=== PATIENT | female | born 1980 | race Caucasian/White ===

== ENCOUNTER 2023-01-01 10:32 | Emergency (ER) | payer MEDICARE, MEDICAID ==
--- NOTE | 2023-01-01 10:51 | ED General ---
General Chief Complaint: Skin/Wound Problems Stated Complaint: RT ELBOW SWELLING/HEAT Nursing Triage Note: RIGHT ELBOW AND ARM SWELLING, REDNESS, AND PAIN. Source of Information: Patient Exam Limitations: No Limitations History of Present Illness Date Seen by Provider: January 01, 2023 Time Seen by Provider: 10:34 Initial Comments 42-year-old female with past medical history of psoriatic arthritis coming in due to right elbow pain. The pain started Sunday, she thought potentially she could have been bitten by bug, but did not see any bites. It is an area that she has psoriatic lesions. Became more red, warm, and more painful as the days went on. She has not taken anything for it as of yet. She states that similar to previous episode where she had an infection in the area. Denies any prior history of gout, pseudogout, vaginal discharge, abdominal pain, fever, chills, or any other concerns. She is able to bend the elbow. Allergies and Home Medications Allergies Coded Allergies: penicillin G (Verified Allergy, Unknown, Rash, 01/01/23) Patient Home Medication List Home Medication List Reviewed: Yes Review of Systems Review of Systems Constitutional: No fever EENTM: no symptoms reported Respiratory: no symptoms reported Cardiovascular: no symptoms reported Gastrointestinal: no symptoms reported Genitourinary: no symptoms reported Musculoskeletal: see HPI Skin: see HPI Psychiatric/Neurological: No Symptoms Reported Past Efcwqyy-Luvsvr-Dgardm Hx Patient Social History Tobacco Use?: No Use of E-Cig and/or Vaping dev: Yes Use of E-Cig and/or Vaping Oneal: Current Everyday User Alcohol Use?: Yes Alcohol Frequency: Couple times a week Pt feels they are or have been: No Past Medical History Surgery/Hospitalization HX: gall bladder gastric bypass Physical Exam Vital Signs Vital Signs - First Documented 01/01/23 10:44 Temp 36.3 Pulse 118 Resp 18 B/P (MAP) 164/98 (120) Pulse Ox 96 O2 Delivery Room Air Capillary Refill : Less Than 3 Seconds Height, Weight, BMI Height: '" Weight: lbs. oz. kg; BMI Method: General Appearance: No Apparent Distress, WD/WN Eyes: Bilateral Eye Normal Inspection HEENT: PERRL/EOMI, Normal ENT Inspection, Pharynx Normal Neck: Full Range of Motion, Normal Inspection, Non Tender, Supple Respiratory: Chest Non Tender, Lungs Clear, Normal Breath Sounds, No Accessory Muscle Use, No Respiratory Distress Cardiovascular: Regular Rate, Rhythm, No Edema, Normal Peripheral Pulses Gastrointestinal: Normal Bowel Sounds, Non Tender, Soft; No Distended, No Gua rding Back: Normal Inspection, No CVA Tenderness Extremity: Normal Capillary Refill, No Calf Tenderness, No Pedal Edema, Other (R elbow erythema, she does have full ROM with pain, no palpable abscess) Neurologic/Psychiatric: Alert, No Motor/Sensory Deficits, Normal Mood/Affect Skin: Warm/Dry, Rash Lymphatic: No Adenopathy Progress/Results/Core Measures Suspected Sepsis SIRS Temperature: Pulse: 118 Respiratory Rate: 18 Blood Pressure 164 /98 Mean: 120 Results/Orders My Orders Orders - MARCOS SALVADOR MD Elbow 2 View Right (01/01/23 10:48) Clindamycin Capsule (Cleocin Capsule) (01/01/23 11:00) Hydrocodone/Apap 5/325 Tablet (Lortab 5 (01/01/23 11:00) Medications Given in ED Current Medications Medications Dose Ordered Sig/Satnam Route Start Time Stop Time Status Last Admin Dose Admin Acetaminophen/ Hydrocodone Bitart 1 ea ONCE ONCE PO 01/01/23 11:00 01/01/23 11:01 DC 01/01/23 10:56 1 EA Clindamycin HCl 300 mg ONCE ONCE PO 01/01/23 11:00 01/01/23 11:01 DC 01/01/23 10:56 300 MG Vital Signs/I&O 01/01/23 10:44 Temp 36.3 Pulse 118 Resp 18 B/P (MAP) 164/98 (120) Pulse Ox 96 O2 Delivery Room Air Capillary Refill : Less Than 3 Seconds Blood Pressure Mean: 120 Progress Note : Progress Note 42-year-old female with above history coming in due to right elbow pain and redness. ABCs were intact and vitals were stable on presentation. Physical exam with erythematous skin on her right elbow at the same area that she has psoriasis present. She does range her elbow although it is painful to her, she has full range of motion. I did a [id number] ultrasound and I do not see any obvious fluid in the elbow joint. X-ray of the elbow ordered and interpreted by me showing no obvious fracture, no obvious osteomyelitis, and no fat pad sign that would be concerning for fluid on her joint space. We will give her clindamycin given her penicillin allergy and have her follow-up with her PCP as an outpatient. I believe she stable for discharge with outpatient follow-up. She was sent home with strict return precautions Diagnostic Imaging Diagonstic Imaging: Xray (elbow) Departure Impression Primary Impression: Cellulitis Qualified Codes: L03.113 - Cellulitis of right upper limb Additional Impression: Psoriatic arthritis Disposition: HOME, SELF-CARE Condition: Stable Departure-Patient Inst. Decision time for Depature: 11:25 Referrals: NO,LOCAL PHYSICIAN (PCP/Family) Primary Care Physician Patient Instructions: Cellulitis (Skin Infection), Adult ED, Psoriatic Arthritis in Adults Add. Discharge Instructions: I am concerned that this area is infected. It does not appear like it is gone into the joint itself which is reassuring. He will be on antibiotics for the next 10 days. Possible this is just a psoriatic arthritis flare as well into the joint space. You can take the hydrocodone as needed for pain. Please follow-up with your primary care provider in the next several days if its not improving. Scripts Hydrocodone/Acetaminophen (Hydrocodone-Acetamin 5-325 mg) 5 Mg-325 Mg Tablet 1 TAB PO Q6H PRN for PAIN-MODERATE (5-7) for 3 Days, #12 TAB Prov: MARCOS SALVADOR MD 01/01/23 Clindamycin HCl (Clindamycin HCl) 300 Mg Capsule 300 MG PO QID for 10 Days, #40 CAP Prov: MARCOS SALVADOR MD 01/01/23 Work/School Note: Work Release Form Date Seen in the Emergency Department: January 01, 2023 Return to Work: January 03, 2023 Restrictions: No Restrictions MARCOS SALVADOR MD January 01, 2023 10:51
[2023-01-01] MEDS ORDERED: CLINDAMYCIN 150 MG (CLEOCIN) CAP PO ONE (11:00)
[2023-01-01] MEDS ORDERED: HYDROcodone/APAP 5 MG/325 MG (LORTAB) TAB PO ONE (11:00)
[2023-01-01] MEDS ORDERED: ACHD5005 PO (11:22)
[2023-01-01] MEDS ORDERED: CLIN-144 PO (11:22)
[2023-01-01 11:25] VITALS: BP 164/98
--- NOTE | 2023-01-01 11:25 | Diagnostic Imaging Report ---
Indication: Right elbow injury with pain AP and lateral views of right elbow are obtained. FINDINGS: No acute fracture or dislocation is identified. No abnormal lytic or sclerotic focus is seen, and there is no radiopaque foreign body. IMPRESSION: No acute abnormality. Dictated by: Dictated on workstation # [id number]
== END 2023-01-01 11:25 | disposition home or self-care (01) ==
LOC: ER FS 10:35
DX: L03.113 Cellulitis of right upper limb (principal); L40.50 Arthropathic psoriasis, unspecified; F17.290 Nicotine dependence, other tobacco product, uncomplicated; Z88.0 Allergy status to penicillin
CPT/HCPCS: 73070